=== PATIENT | male | born 1995 | race Caucasian/White ===

== ENCOUNTER → 2016-08-31 | Outpatient (CLI) | payer BC ==
--- NOTE | 2016-08-31 13:58 | Diagnostic Imaging Report ---
Three views of the right hand. INDICATION: Injury. FINDINGS: There is a mildly angulated, mildly impacted fracture at the distal shaft of the fifth metacarpal. There is no extension into the joint. No subluxation or dislocation is seen. There is no radiopaque foreign body. IMPRESSION: Angulated mildly impacted fracture at the distal shaft of the fifth metacarpal bone. The findings on this exam were called and voice message left for Dr. Moeller by Dr. Dow at time of dictation. Dictated by: Dictated on workstation # [id number]
== END ==
LOC: RAD 11:42
PROVIDERS: ATTEND Internal Medicine
DX: S62.326A Displaced fracture of shaft of fifth metacarpal bone, right hand, initial encounter for closed fracture (principal); W22.01XA Walked into wall, initial encounter; Y99.8 Other external cause status
CPT/HCPCS: 73130